=== PATIENT | female | born 1985 | race Caucasian/White ===

== ENCOUNTER → 2018-09-23 | Outpatient (CLI) | payer OTHER ==
--- NOTE | 2018-09-23 14:25 | Diagnostic Imaging Report ---
PROCEDURE: MRI lumbar spine. TECHNIQUE: Multiplanar, multisequence MRI of the lumbar spine was performed without contrast. INDICATION: Fall and low back pain with bilateral leg pain and numbness, left worse than right. COMPARISON: No prior studies are available for comparison. FINDINGS: Curvature of the lumbar spine is normal. There is grade I spondylolisthesis of L5 on S1. Vertebral body heights are maintained. No geographic marrow lesion or acute compression fracture is detected. There is fairly normal height and signal intensity to the lumbar intervertebral discs apart from L5-S1 where there is disc space narrowing and desiccation compatible with degenerative disc disease. Conus is unremarkable at the T12-L1 level. T12-L1: Central canal and neural foramina are patent. L1-L2: Unremarkable. L2-L3: Unremarkable. L3-L4: Unremarkable. L4-L5: There are some degenerative facet changes noted. The central canal and neural foramina are widely patent. L5-S1: There is midline and left posterolateral broad-based disc/osteophyte complex. This does produce slight indentation upon the ventral thecal sac. There is significant narrowing of the left lateral recess and significant narrowing of the left neural foramen. Only very minimal narrowing of the right neural foramen is seen. Paraspinous tissues are unremarkable. IMPRESSION: L5-S1 degenerative disc disease with grade I spinal listhesis. Broad-based disc/osteophyte complex does result in significant left lateral recess and neural foraminal stenosis. Minimal right neural foraminal stenosis is seen. No central canal narrowing is detected. No acute compression fracture is identified. Dictated by: Dictated on workstation # [id number]
== END ==
LOC: RAD 11:57
PROVIDERS: ATTEND Nurse Practitioner Primary Care
DX: M48.061 Spinal stenosis, lumbar region without neurogenic claudication (principal); M43.17 Spondylolisthesis, lumbosacral region; M25.78 Osteophyte, vertebrae; M51.17 Intervertebral disc disorders with radiculopathy, lumbosacral region; W19.XXXA Unspecified fall, initial encounter
CPT/HCPCS: 72148

== ENCOUNTER 2018-12-20 11:11 | Outpatient (RCR) | payer OTHER | END 2019-01-17 14:44 | disposition home or self-care (01) | PROVIDERS: ATTEND Nurse Practitioner Primary Care | DX: M54.40 Lumbago with sciatica, unspecified side (principal) ==